=== PATIENT | female | born 1960 | race Caucasian/White ===

== ENCOUNTER → 2019-08-21 | Outpatient (CLI) | payer OTHER | LOC: LAB.O 08-20 08:50 | PROVIDERS: ATTEND Family Medicine | DX: E78.5 Hyperlipidemia, unspecified (principal); R53.83 Other fatigue ==

== ENCOUNTER → 2019-08-26 | Outpatient (CLI) | payer OTHER ==
--- NOTE | 2019-08-27 09:14 | CT ---
Procedure: CT LUNG SCREENING Exam Date: August 26, 2019. Ordering Provider: Lion Diaz Clinical Indication: PERSONAL HISTORY OF NICOTINE DEPENDENCE current cigarette smoker. 30 pack years. This patient meets eligibility criteria for low-dose CT lung cancer screening. Comparison: Screening breast tomosynthesis on the same visit. Technique: Using a multislice scanner, sequential helical axial imaging was obtained in the thorax, 2.5 mm thickness, 2.5 mm separation, from the level of the thoracic inlet through the lung bases without IV contrast. A low dose protocol was utilized for BMI less than 30: BMI: 20.4. CTDI: 1.76 mGy. 120. kVp. 45 mA. DLP 71 mGy-cm. 2D sagittal and coronal reconstructed images, 6.0 mm thickness, were obtained. This exam was performed according to our departmental dose optimization program which includes use of automated exposure control, adjustment of the mA and/or kV according to patient size and/or use of iterative reconstruction technique. Nodule measurements under 10 mm are given as mean value of 3 axes diameters. FINDINGS: Lungs and large airways: Bilateral parenchymal blebs in a centrilobular pattern more prevalent in the upper lung huggins decreasing in the midlung huggins. Pleural parenchymal scar right lower lobe. 3 mm solid nodule subpleural, lateral superior segment right lower lobe near the fissure on axial image 2, image 64. Also in the more inferior location in the superior segment is a 3.5 mm solid subpleural nodule on image 2/81. Pleura and space: Bilateral apical pleural thickening and pleural parenchymal scarring as previously noted. Mediastinum and anamika: evaluation limited by low dose technique and lack of IV contrast. No abnormal nodes and no mass. Heart and great vessels: Calcification at the root of the aorta. Chest wall, lower neck, axillae: Evaluation also limited by same factors as described above. Bilateral subpectoral saline breast implants. Capsules appear intact where seen. Upper abdomen: Evaluation limited by low-dose technique. No free air or free fluid in the included peritoneal space. Minimal ascites around the liver, and possibly Morison's pouch. Spleen and adrenal glands normal size and density.. Osseous structures: Evaluation limited by low dose MIP technique. Minimal spondylosis upper thoracic spine. IMPRESSION: 1. Small nodules less than 6 mm in the right lower lobe. Centrilobular emphysematous changes more prevalent in the upper lung huggins. No abnormal nodules. No mass. No focal infiltrate. [facility] Best Practice Recommendations: please see below for Lung RADS category and FOLLOW-UP.* *Lung RADS category CATEGORY 2S- Nodules with a very low likelihood (less than 1%) of becoming a clinically active cancer due to size or lack of growth. Nodules: Perifissural nodule(s) < 10 mm. (526mm3). Solid or part solid nodule(s) less than 6mm (113.1 mm3), new solid nodule less than 4mm (33.5 mm3). Ground glass nodule(s) less than 30mm (20136.2 mm3) or unchanged or slow growing ground glass nodule 30mm or greater. Cat 3 or 4 nodule unchanged for 3 or more months. FOLLOW-UP: Continue annual screening with a Low Dose Chest CT in 12 months for re-evaluation. 2. Lung RADS Modifier S - Clinically Significant or Potentially Clinically Significant Findings (non lung cancer). Possible ascites in the right upper quadrant around the liver and in Morison's pouch. Consider follow-up abdominal ultrasound. Electronically signed by: Avery Taylor MD 08/27/2019 9:13 AM CDT
== END ==
LOC: CT 11:26
PROVIDERS: ATTEND Family Medicine
DX: Z87.891 Personal history of nicotine dependence (principal); R91.8 Other nonspecific abnormal finding of lung field; J43.9 Emphysema, unspecified

== ENCOUNTER → 2019-08-26 | Outpatient (CLI) | payer OTHER ==
--- NOTE | 2019-09-02 13:46 | MAM ---
History: Well woman exam. Date of exam: 08/26/2019 Services provided: Bilateral full field digital screening mammography with romain. CAD, the images were reviewed with R2 computer aided detection. FINDINGS: Glandular tissue contains scattered areas of fibroglandular densities. A prior study is not currently available for comparison. There are bilateral intact subpectoral implants with folds. Calcifications overlying the left implant 3-4 o'clock may represent capsular calcification however morphology and distribution is somewhat unusual and further characterization to completely evaluate the lateral breast tissue on the left is recommended. A 4 mm nodule is demonstrated in the right breast approximately 2 cm from the nipple at 12-1 o'clock. Has a lobulated contour without internal calcification. IMPRESSION: Incomplete study. Recommendation: Additional mammographic views left breast with an exaggerated lateral left implant and implant displaced view with romain recommended. Directed ultrasound right breast. BIRAD CATEGORY: 0 INCOMPLETE - Need additional imaging evaluation and/or prior mammograms for comparison. Exam findings and recommendations will be sent to the patient. Electronically signed by: Amalia Atkins MD 09/02/2019 1:45 PM CDT Workstation: [id number]
== END ==
LOC: MAMMO 11:12
PROVIDERS: ATTEND Family Medicine
DX: Z12.31 Encounter for screening mammogram for malignant neoplasm of breast (principal)

== ENCOUNTER → 2019-10-19 | Outpatient (CLI) | payer OTHER ==
--- NOTE | 2019-10-20 09:15 | US ---
EXAM DESCRIPTION: 3D Diagnostic, Bilateral (accession [id number]), Breast,Right (accession [id number]): Ultrasound CLINICAL HISTORY: 59 yearsFemaleABNORMAL SCREENING MAMMOGRAM right breast nodule. Calcifications left breast. Lifetime risk of developing breast cancer (Tyrer-Cuzick model)(%): Not calculated COMPARISON: Bilateral screening digital breast tomosynthesis with Genevieve implant displacement views August 25. TECHNIQUE: Bilateral LM projection full-field images, Genevieve implant displacement, digital tomosynthesis technique. Bilateral 2-D digital full-field images: LM without implant displacement and left exaggerated CC projections with implant displacement. CAD available for 2-D images.. Transcutaneous scanning of the right breast utilizing zapien-scale and Doppler modes. Scanning performed by the day care center director ; observation by Dr. Taylor. FINDINGS: The breast parenchymal density pattern is: Scattered areas of fibroglandular density. No skin thickening or nipple retraction nodular density upper inner quadrant right breast 1:00 to 2:00. Less than 1 cm diameter. No microcalcifications. Calcification seen in the left implant but not the breast tissue. Implants are stable. Ultrasound: Scanning upper-outer quadrant of the right breast. Hypoechoic nodule with eccentric echogenicity measuring 3.5 times 2.6 x 1.9 mm. Wider than tall orientation and posterior acoustic enhancement. Nonvascular. Most likely a lymph node. Slightly more inferior similar-appearing mass measuring 3.1 x 2.3 mm also wider than tall orientation and posterior acoustic enhancement and nonvascular. Most likely a lymph node. Consistent with mammographic appearance. IMPRESSION: Benign exam. BIRAD CATEGORY: 2 BENIGN FINDINGS. RECOMMENDATIONS: FOLLOW UP: Routine digital bilateral mammographic screening, one year interval from August 2019. Written communication explaining the IMPRESSION and follow-up, will be mailed to the patient and referring health care provider. According to the [employer], yearly mammograms are recommended starting at age 40 and continuing as long as a woman is in good health. Any breast change noted on a breast self-exam should be reported promptly to the patient's healthcare provider. Breast MRI is recommended for women with an approximately 20-25% or greater lifetime risk of breast cancer, including women with a strong family history of breast or ovarian cancer and women who have been treated for Hodgkin's disease. A negative mammographic report should not delay tissue diagnosis in patients with significant clinical history or physical findings. Extremely dense breast tissue limits the sensitivity of digital mammography. Electronically signed by: Avery Taylor MD 10/20/2019 9:14 AM CDT
--- NOTE | 2019-10-21 17:09 | MAM ---
EXAM DESCRIPTION: 3D Diagnostic, Bilateral (accession [id number]), Breast,Right (accession [id number]): Ultrasound CLINICAL HISTORY: 59 yearsFemaleABNORMAL SCREENING MAMMOGRAM right breast nodule. Calcifications left breast. Lifetime risk of developing breast cancer (Tyrer-Cuzick model)(%): Not calculated COMPARISON: Bilateral screening digital breast tomosynthesis with Genevieve implant displacement views August 25. TECHNIQUE: Bilateral LM projection full-field images, Genevieve implant displacement, digital tomosynthesis technique. Bilateral 2-D digital full-field images: LM without implant displacement and left exaggerated CC projections with implant displacement. CAD available for 2-D images.. Transcutaneous scanning of the right breast utilizing zapien-scale and Doppler modes. Scanning performed by the multimedia coordinator ; observation by Dr. Taylor. FINDINGS: The breast parenchymal density pattern is: Scattered areas of fibroglandular density. No skin thickening or nipple retraction nodular density upper inner quadrant right breast 1:00 to 2:00. Less than 1 cm diameter. No microcalcifications. Calcification seen in the left implant but not the breast tissue. Implants are stable. Ultrasound: Scanning upper-outer quadrant of the right breast. Hypoechoic nodule with eccentric echogenicity measuring 3.5 times 2.6 x 1.9 mm. Wider than tall orientation and posterior acoustic enhancement. Nonvascular. Most likely a lymph node. Slightly more inferior similar-appearing mass measuring 3.1 x 2.3 mm also wider than tall orientation and posterior acoustic enhancement and nonvascular. Most likely a lymph node. Consistent with mammographic appearance. IMPRESSION: Benign exam. BIRAD CATEGORY: 2 BENIGN FINDINGS. RECOMMENDATIONS: FOLLOW UP: Routine digital bilateral mammographic screening, one year interval from August 2019. Written communication explaining the IMPRESSION and follow-up, will be mailed to the patient and referring health care provider. According to the [employer], yearly mammograms are recommended starting at age 40 and continuing as long as a woman is in good health. Any breast change noted on a breast self-exam should be reported promptly to the patient's healthcare provider. Breast MRI is recommended for women with an approximately 20-25% or greater lifetime risk of breast cancer, including women with a strong family history of breast or ovarian cancer and women who have been treated for Hodgkin's disease. A negative mammographic report should not delay tissue diagnosis in patients with significant clinical history or physical findings. Extremely dense breast tissue limits the sensitivity of digital mammography. Electronically signed by: Avery Taylor MD 10/20/2019 9:14 AM CDT
== END ==
LOC: US 10:00
PROVIDERS: ATTEND Family Medicine
DX: R92.8 Other abnormal and inconclusive findings on diagnostic imaging of breast (principal); Z98.82 Breast implant status
CPT/HCPCS: 76641; 77066; G0279